=== PATIENT | female | born 1975 | race Caucasian/White ===

== ENCOUNTER 2024-09-04 11:37 | Outpatient (REF) | payer MEDICAID, SELFPAY ==
[2024-09-04 19:26] LABS: ALT 25 U/L (14-59); AST 17 U/L (15-37); Albumin 3.7 g/dL (3.4-5.0); Alkaline Phosphatase 88 U/L (46-116); Anion Gap 8.6 mmol/L (3-11); BUN 12 mg/dL (7-18); Bilirubin, Total 0.33 mg/dL (0.2-1.0); CO2 28.4 mmol/L (21.0-32.0); CREATININE 1.1 mg/dL (0.55-1.02); Calcium 8.9 mg/dL (8.5-10.1); Calculated LDL 153 mg/dL (<100); Chloride 105 mmol/L (98-107); Cholesterol 247 mg/dL (<200); Estimated GFR 61.98 (mL/min/1.73m2); Glucose 102 mg/dL (74-106); HDL Cholesterol 50 mg/dL (40-60); Potassium 4.3 mmol/L (3.5-5.1); Sodium 142 mmol/L (136-145); Triglyceride 220 mg/dL (<150)
== END 2024-09-04 11:38 | disposition home or self-care (01) ==
LOC: NCHCN 11:37
PROVIDERS: Visit Provider Nurse Practitioner Family
DX: Z13.1 Encounter for screening for diabetes mellitus (principal); Z13.220 Encounter for screening for lipoid disorders
CPT/HCPCS: 80053; 80061

== ENCOUNTER 2024-10-23 17:44 | Outpatient (REF) | payer MEDICAID, SELFPAY ==
--- NOTE | 2024-10-23 10:50 | PAPFT_PTH ---
PATIENT: Shante Vázquez LOC: [facility], [facility] U#:[id number] AGE/SX: 49/F ROOM: RE10/23/[address]: Khadra Arnett : 1975 BED: DIS: 10/23/2024 SPEC #: [id number] RECD: 10/23/24 18:39 STATUS: JARAD REQ #: [id number] LAZARO: 10/23/24 10:[address] Cytology RECD BY: Laina Davenport ENTERED: 10/23/24 18:40 SP TYPE: PAPFT RHYS DR: Unknown,Unknown Tissues: 1 - CX/ENDOCX FOR PAP SMEARS Procedures: PAP THIN PREP/[facility] Screening HPV DNA PROBE Comments: [id number] (HPV 16 & 18/45)
== END 2024-10-23 17:45 | disposition home or self-care (01) ==
LOC: NCHCN 17:44
PROVIDERS: Visit Provider Nurse Practitioner Family
DX: Z11.51 Encounter for screening for human papillomavirus (HPV) (principal); Z01.419 Encounter for gynecological examination (general) (routine) without abnormal findings; R87.610 Atypical squamous cells of undetermined significance on cytologic smear of cervix (ASC-US)
CPT/HCPCS: 88142; 87624

== ENCOUNTER 2025-09-25 12:40 | Outpatient (REF) | payer MEDICAID, SELFPAY ==
[2025-09-25 18:10] LABS: Abs Immature Grans 0.01 10^3/uL (0.0-0.06); HCT 41.4 % (36.0-46.0); HGB 13.7 g/dL (11.2-15.7); Immature Grans % 0.2 %; MCH 28.5 pg (27.0-33.0); MCHC 33.1 % (32.0-36.0); MCV 86 fL (80-95); MPV 10.6 fL (8.0-11.0); Platelet Count 208 10^3/uL (130-400); RBC 4.80 10^6/uL (3.93-5.22); RDW 13.4 % (11.7-14.6); RDW-SD 42.5 fL; WBC 4.69 10^3/uL (4.4-10.8)
[2025-09-25 18:28] LABS: Cholesterol 260 mg/dL (<200); HDL Cholesterol 52 mg/dL (>or=50)
[2025-09-26 01:33] LABS: TSH (W/Ref FT4) 1.20 uIU/mL (0.55-4.78)
== END 2025-09-25 12:41 | disposition home or self-care (01) ==
LOC: NCHCN 12:40
PROVIDERS: Visit Provider Nurse Practitioner Family
DX: F32.1 Major depressive disorder, single episode, moderate (principal); E78.49 Other hyperlipidemia
CPT/HCPCS: 80061; 84443; 85025